=== PATIENT | female | born 2000 ===

== ENCOUNTER 2021-08-06 05:19 | Emergency (ER) | payer MEDICAID, OTHER ==
[~2021-08-06] VITALS: Ht 162.6 cm; Wt 65.8 kg
[2021-08-06 05:48] VITALS: BP 123/74
== END 2021-08-06 09:00 | disposition left against medical advice (07) ==
LOC: ER 05:19
DX: S90.01XA Contusion of right ankle, initial encounter (principal); T14.8XXA Other injury of unspecified body region, initial encounter; M79.10 Myalgia, unspecified site; J45.909 Unspecified asthma, uncomplicated; V49.9XXA Car occupant (driver) (passenger) injured in unspecified traffic accident, initial encounter; Y93.89 Activity, other specified; Y92.410 Unspecified street and highway as the place of occurrence of the external cause; Y99.8 Other external cause status
CPT/HCPCS: 70450; 70486; 72040; 72170; 73610

== ENCOUNTER → 2021-08-06 | Emergency (ER) | payer MEDICAID, OTHER | END | disposition left against medical advice (07) | LOC: ER 04:39 → EDBD 04:39 | DX: Z00.00 Encounter for general adult medical examination without abnormal findings (principal); Z53.21 Procedure and treatment not carried out due to patient leaving prior to being seen by health care provider ==